=== PATIENT | male | born 1960 | race Caucasian/White ===

== ENCOUNTER → 2017-06-18 | Outpatient (CLI) | payer OTHER ==
[~2017-06-18] MED LIST: AMLO5TAB2 PO; DOCU100T15 PO; GABA-339 PO; HYDR-4072 PO; LORA-655 PO; MELO1TAB73 PO; METH750T3 PO; NORT25CA PO; ZOLP10TA6 PO
[2017-06-18 07:59] LABS: Lymphocytes # (auto) 0.8 uL; Monocytes # (auto) 0.6 uL; Neutrophils # (auto) 4.1 uL; Red Blood Cells 4.34 10^6/uL (4.5-5.90); White Blood Cell 5.9 10^3/uL (4.4-10.8)
[2017-06-18 08:01] LABS: Basophils # (auto) 0 uL; Basophils % (auto) 0.8 % (0.0-2.0); Eosinophils # (auto) 0.2 uL; Eosinophils % (auto) 4.2 % (0.0-7.0); Hematocrit 44.4 % (41.0-53.0); Lymphocytes % (auto) 13.6 % (10.0-50.0); Mean Corpuscular Hemoglobin 34.6 pg (28.0-32.0); Mean Corpuscular Hgb Conc. 33.9 g/dL (32.0-36.0); Mean Corpuscular Volume 102.1 fL (80.0-100.0); Monocytes % (auto) 10.6 % (0.0-12.0); Neutrophils % (auto) 70.8 % (37.0-80.0); Platelet Count (auto) 125 10^3/uL (140-450); Red Cell Distribution Width 14.2 % (11.8-14.3)
== END | disposition home or self-care (01) ==
LOC: LAB 07:41
PROVIDERS: ATTEND Internal Medicine Gastroenterology
DX: K92.0 Hematemesis (principal)
CPT/HCPCS: 36415; 85025

== ENCOUNTER 2017-06-26 12:06 | Inpatient (IN) | payer OTHER ==
[~2017-06-26] VITALS: Ht 175.3 cm; Wt 90.7 kg
[2017-06-26] MEDS ORDERED: IPRATROPIUM BROM 0.5 MG/2.5ML INH SOL NEB ONE (12:30)
[2017-06-26] MEDS ORDERED: ALBUTEROL SULF 2.5 MG/0.5ML(0.5%) NEB SOLN NEB ONE (12:30)
[2017-06-26] MEDS ORDERED: methylPREDNISolone SOD SUCC 125 MG/2 ML VL IV ONE ×3 (12:30→20:15)
[2017-06-26 13:05] LABS: Hematocrit 44.9 % (41.0-53.0); Hemoglobin 15.3 g/dL (13.5-17.5); Mean Corpuscular Hemoglobin 34.4 pg (28.0-32.0); Mean Corpuscular Volume 101.2 fL (80.0-100.0); Platelet Count (auto) 155 10^3/uL (140-450); Red Blood Cells 4.43 10^6/uL (4.5-5.90); Red Cell Distribution Width 13.5 % (11.8-14.3); White Blood Cell 3.1 10^3/uL (4.4-10.8)
[2017-06-26 13:07] LABS: Basophils % (manual) 0 (0.0-2.0); Blast Cells 0; Eosinophils % (manual) 0 (0-7); Metamyelocytes % 0; Myelocytes % 0; Promyelocytes % 0; Reactive Lymphocytes 0
[2017-06-26 13:13] LABS: Lactic Acid w/Reflex 2.7 mmol/L (0.4-2.0)
[2017-06-26 13:14] LABS: Albumin 3.2 g/dL (3.4-5.0); BUN/Creatinine Ratio 16.1; Bilirubin, Total 1.1 mg/dL (0.2-1.0); Calcium 8.7 mg/dL (8.5-10.1); Magnesium 1.6 mg/dL (1.6-2.6); Potassium 3.4 mmol/L (3.5-5.1); Total Protein 6.4 g/dL (6.4-8.2)
[2017-06-26 14:15] LABS: Urine Bacteria FEW /hpf (None Seen); Urine Blood 1+ /uL (Negative); Urine Mucus FEW (None Seen); Urine Specific Gravity 1.022 (1.001-1.035); Urine WBC 2 /hpf (0 - 3)
[2017-06-26 14:31] LABS: Band Neutrophils % (manual) 4; Lymphocytes % (manual) 23 (10.0-50.0); Monocytes % (manual) 25 (0-12)
[2017-06-26] MEDS ORDERED: VANCOMYCIN 1GM/250ML 250 ML IV ONE (14:45)
[2017-06-26] MEDS ORDERED: POTASSIUM CHL 10% (20 MEQ/15ML) 15ml ORAL SOLN PO ONE (14:45)
[2017-06-26] MEDS ORDERED: SODIUM CHLORIDE 0.9% 1,000 ML IV SCH (16:54)
[2017-06-26] MEDS ORDERED: VANCOMYCIN PER PHARMACY 0 MG IV SCH (17:00)
[2017-06-26] MEDS ORDERED: POTASSIUM CHL 10 Meq TABLET PO ONE (17:00)
[2017-06-26] MEDS ORDERED: MORPHINE SULF INJ 2 MG/ML SYRINGE 1ML IV PRN ×2 (17:00)
[2017-06-26] MEDS ORDERED: NITROGLYCERIN 0.4 MG SL TAB SL PRN (17:00)
[2017-06-26] MEDS ORDERED: LEVOFLOXACIN 500MG 100 ML IV ONE (17:00)
[2017-06-26] MEDS ORDERED: ONDANSETRON HCL 4 MG/2 ML VIAL IV PRN (17:00)
[2017-06-26] MEDS ORDERED: TEMAZEPAM 15 MG CAP PO PRN (17:00)
[2017-06-26] MEDS ORDERED: HYDROcodone-ACET 10/325MG TAB PO PRN (17:00)
[2017-06-26] MEDS ORDERED: LORazepam 0.5 MG TAB PO PRN (17:00)
[2017-06-26] MEDS ORDERED: DOCUSATE SOD 100 MG CAP PO PRN (17:00)
[2017-06-26] MEDS ORDERED: METHOCARBAMOL 500 MG TAB PO PRN (17:00)
[2017-06-26] MEDS ORDERED: ACETAMINOPHEN 325 MG TAB PO PRN (17:00)
[2017-06-26] MEDS ORDERED: methylPREDNISolone SOD SUCC 125 MG/2 ML VL IV SCH (18:00)
[2017-06-26] MEDS ORDERED: FUROSEMIDE 20 MG/2 ML VIAL IV SCH (18:00)
[2017-06-26] MEDS ORDERED: Boost Glucose Control 8 Ounces PO SCH (18:00)
[2017-06-26] MEDS ORDERED: IPRATROPIUM BROM 0.5 MG/2.5ML INH SOL NEB SCH (18:00)
[2017-06-26] MEDS ORDERED: ALBUTEROL SULF 2.5 MG/0.5ML(0.5%) NEB SOLN NEB SCH (18:00)
[2017-06-26 18:20] VITALS: BP 109/24
[2017-06-26] MEDS ORDERED: ETOMIDATE (2MG/ML) 20ML VIAL IV ONE ×2 (19:13→19:30)
[2017-06-26] MEDS ORDERED: SUCCINYLCHOLINE CHLORIDE 20 MG/ML 10ML VIAL IV ONE ×2 (19:13→19:30)
[2017-06-26] MEDS ORDERED: MIDAZOLAM DRIP 100 mg/100mL NS 100 ML IV SCH (19:20)
[2017-06-26] MEDS ORDERED: ATROPINE SULF 0.5 MG/5ML SYR ONE (19:23)
[2017-06-26 19:35] LABS: Lactic Acid w/Reflex 4.2 mmol/L (0.4-2.0)
[2017-06-26 19:40] VITALS: BP 147/65
[2017-06-26] MEDS ORDERED: methylPREDNISolone SOD SUCC 125 MG/2 ML VL ONE (19:54)
[2017-06-26] MEDS ORDERED: NOREPINEPHRINE 8 MG/250ML KIT 250 ML IV ONE (20:35)
[2017-06-26] MEDS ORDERED: NOREPINEPHRINE 8 MG/250ML KIT 250 ML IV SCH (20:45)
[2017-06-26] MEDS ORDERED: DOPamine 1600MCG/ML D5W 250 ML IV SCH (20:45)
[2017-06-26] MEDS ORDERED: SODIUM BICARBONATE 8.4% INJ 50ML SYRINGE ONE (21:00)
[2017-06-26] MEDS ORDERED: EPINEPHrine HCL 1 MG/10 ML SYRG ONE (21:24)
[2017-06-26 21:37] VITALS: BP 101/37
[2017-06-26] MEDS ORDERED: GABAPENTIN 300 MG CAP PO SCH (22:00)
[2017-06-26] MEDS ORDERED: FAMOTIDINE 20 MG TAB PO SCH (22:00)
[2017-06-26] MEDS ORDERED: OSELTAMIVIR 75 MG CAP PO SCH (22:00)
[2017-06-26] MEDS ORDERED: ASCORBIC ACID 500 MG TAB PO SCH (22:00)
[2017-06-26] MEDS ORDERED: POTASSIUM CHLORIDE 8 MEQ TAB PO SCH (22:00)
[2017-06-27] MEDS ORDERED: VANCOMYCIN 1GM/250ML 250 ML IV SCH (05:00)
[2017-06-27] MEDS ORDERED: MULTIPLE VITAMIN TAB PO SCH (10:00)
[2017-06-27] MEDS ORDERED: LEVOFLOXACIN 500MG 100 ML IV SCH (10:00)
[2017-06-27] MEDS ORDERED: amLODIPine BESYLATE 5 MG TAB PO SCH (10:00)
[2017-06-28 09:52] LABS: Folate (Folic Acid) 12.11 ng/mL (5.38-24)
== END 2017-06-26 21:40 | disposition expired | DRG 871 ==
LOC: EDUNIT# 12:06 → ER 12:14 → OVERFLOW 12:15
PROVIDERS: ADMIT Internal Medicine; ATTEND Internal Medicine
PROC: 5A09357 Assistance with Respiratory Ventilation, Less than 24 Consecutive Hours, Continuous Positive Airway Pressure (ICD-10-PCS; principal; 2017-06-26)
PROC: 5A12012 Performance of Cardiac Output, Single, Manual (ICD-10-PCS; 2017-06-26)
DX: A41.9 Sepsis, unspecified organism (principal); J96.91 Respiratory failure, unspecified with hypoxia; J10.00 Influenza due to other identified influenza virus with unspecified type of pneumonia; E11.21 Type 2 diabetes mellitus with diabetic nephropathy; I13.0 Hypertensive heart and chronic kidney disease with heart failure and stage 1 through stage 4 chronic kidney disease, or unspecified chronic kidney disease; E44.0 Moderate protein-calorie malnutrition; J44.0 Chronic obstructive pulmonary disease with (acute) lower respiratory infection; J45.901 Unspecified asthma with (acute) exacerbation; I50.9 Heart failure, unspecified; J44.1 Chronic obstructive pulmonary disease with (acute) exacerbation; N39.0 Urinary tract infection, site not specified; N18.3 Chronic kidney disease, stage 3 (moderate); E11.22 Type 2 diabetes mellitus with diabetic chronic kidney disease; Z68.29 Body mass index [BMI] 29.0-29.9, adult; E87.6 Hypokalemia; F17.210 Nicotine dependence, cigarettes, uncomplicated; I25.10 Atherosclerotic heart disease of native coronary artery without angina pectoris; I25.2 Old myocardial infarction; I46.9 Cardiac arrest, cause unspecified
CPT/HCPCS: 36415; 36600; 51702; 71045; 80053; 81001; 82607; 82746; 82805; 82962; 83036; 83605; 83735; 83880; 84484; 85007; 85027; 87040; 87070; 87077; 87086; 87186; 87205; 87400; 92950; 93005; 94644; 94660; 96365; 96367; 96375; G0378; J0330; J0461; J1956